=== PATIENT | male | born 1930 | race Hispanic/Latino ===

== ENCOUNTER 2016-08-27 19:28 | Inpatient (IN) | payer MEDICARE, OTHER ==
[~2016-08-27] VITALS: Ht 170.2 cm; Wt 68.8 kg
[~2016-08-27 19:28] MED LIST: ADVAIR DISK1 IN; ALLOPURINOL100 MG PO; AMLODIPINE10 MG OR; AMLODIPINE5 MG PO; AMOXICILLIN500 MG PO; ATROVENT I0.5 MG/VIA IN; AUGMENTIN875TAB PO; AVELOX400 MG OR; AVELOX400 MG PO; BACTRIM DS1 TAB PO; BIOTUSSIN PO; BUMETANIDE2 MG PO; CARDURA4 MG PO; CENTRUM PO; CEPHALEXIN500 MG OR; CLONIDINE0.1 MG OR; CLONIDINE0.1 MG PO; COUMADIN1 MG OR; COZAAR100 MG PO; DILAUDID 2MG2 MG/TA1 PO; DIOVAN160 MG OR; DIOVAN320 MG OR; DOXAZOSIN4 MG PO; DOXYCYCL HYC100 MG PO; DUONEB IN; ELIQUIS2.5 MG PO; FERROUS SULF325 M1 PO; FLEXERIL OR; FLEXERIL5 MG PO; GABAPENTIN300 MG PO; HYDRALAZINE50 MG PO; KEFLEX500 MG PO; LASIX 20 MG TAB20 MG PO; LASIX 40 MG40 MG/TAB PO; LORTAB 10 PO; LORTAB 7.5 PO; LOSARTAN POT50 MG PO; LOSARTAN POTASS50 MG PO; MEDDOSEPAK PO; METOPROL TAR100 MG; METOPROL TAR100 MG PO; METOPROL TAR25 M1 PO; METOPROL TAR25 MG PO; METOPROLOL100 MG OR; MULTI VIT PO; NEURONTIN300 MG OR; NEXIUM40 M1 OR; NORVASC10 M1 PO; OMEPRAZOLE20 MG PO; OXYCOD/APAP PO; PANCOF EXP OR; PERCOCET 5/325M1 TAB PO; PLAVIX75 MG OR; PRADAXA150 MG PO; PREDNISONE10 MG PO; PRILOSEC20 MG PO; PROAIR HFA IN; ROBITUSSIN10 ML PO; STERAPRED DS10 MG OR; TAMSULOSIN0.4 MG PO; TYLENOL325 MG PO; ULTRAM50 MG OR; XANAX0.25 MG PO; ZITHROMAX500 MG PO
[2016-08-27 20:12] LABS: HEMATOCRIT 31.6 % (39.0-50.0); HEMOGLOBIN 9.8 g/dl (14.0-18.0); IMMATURE GRANULOCYTES 0.7 % (0.0-1.0); MEAN CELL VOLUME 83.2 fL CALC (80.0-100.0); MEAN CORPUSCULAR HGB 25.8 pG CALC (26.0-32.0); NEUT# 4.46 thou/uL (1.82-7.42); RED BLOOD COUNT 3.8 mill/uL (4.70-6.10); RED CELL DISTRI WIDTH 17.1 % (11.5-15.5)
[2016-08-27] MEDS ORDERED: PRILOSEC20 MG PO (20:33)
[2016-08-27 20:38] LABS: ALBUMIN 4.2 g/dL (3.2-5.0); ALKALINE PHOSPHATASE 111 u/l (38-126); ANION GAP 16 (6-22 (CALC)); BILIRUBIN, TOTAL 0.9 mg/dL (0.0-1.4); BUN 32 mg/dL (8-23); BUN/CREATININE RATIO 21 (12-20 (CALC)); CALCIUM 8.8 mg/dL (8.4-10.2); CARBON DIOXIDE 26 mmol/l (22-30); CHLORIDE 100 mmol/l (95-108); CREATININE 1.5 mg/dL (0.7-1.3); GFR 44 ML/MIN (>=60 (CALC)); GFR FOR AFR.AMER. 54 ML/MIN (>=60 (CALC)); GLUCOSE 118 mg/dL (82-115); POTASSIUM 4.3 mmol/l (3.5-5.1); SGOT/AST 29 u/l (19-48); SGPT/ALT 23 u/l (11-66); SODIUM 137 mmol/l (137-146); TOTAL PROTEIN 7.5 g/dL (6.3-8.2)
[2016-08-27 20:49] LABS: MYOGLOBIN 109 ng/mL (0 - 121)
[2016-08-27 21:08] LABS: URINE BILIRUBIN - DIPSTICK NEGATIVE (NEGATIVE); URINE BLOOD DIPSTICK NEGATIVE (NEGATIVE); URINE CLARITY CLEAR; URINE COLOR YELLOW; URINE GLUCOSE - DIPSTICK NEGATIVE (NEGATIVE); URINE KETONE NEGATIVE (NEGATIVE); URINE LEUK ESTERASE NEGATIVE (NEGATIVE); URINE NITRITE - DIPSTICK NEGATIVE (Negative); URINE PH 5.5 (4.5-8.0); URINE PROTEIN - DIPSTICK NEGATIVE (NEG-TRACE); URINE UROBILINOGEN - DIPSTICK 0.2 E.U./dL (0.2)
[2016-08-27 23:15] VITALS: BP 190/72
[2016-08-27 23:30] VITALS: BP 173/73
[2016-08-27 23:45] VITALS: BP 173/73
[2016-08-28] VITALS (12 sets, daily range): BP systolic 142–165; BP diastolic 56–78
[2016-08-28 06:18] LABS: HEMATOCRIT 32.2 % (39.0-50.0); HEMOGLOBIN 10.1 g/dl (14.0-18.0); IMMATURE GRANULOCYTES 1.2 % (0.0-1.0); MEAN CELL VOLUME 82.8 fL CALC (80.0-100.0); MEAN CORPUSCULAR HGB CONC 31.4 g/L CALC (32.0-36.0); NEUT# 5.46 thou/uL (1.82-7.42); RED BLOOD COUNT 3.89 mill/uL (4.70-6.10); RED CELL DISTRI WIDTH 17.3 % (11.5-15.5)
[2016-08-28 06:32] LABS: ALBUMIN 4.3 g/dL (3.2-5.0); ALKALINE PHOSPHATASE 117 u/l (38-126); ANION GAP 16 (6-22 (CALC)); BILIRUBIN, TOTAL 1.2 mg/dL (0.0-1.4); BUN 29 mg/dL (8-23); BUN/CREATININE RATIO 23 (12-20 (CALC)); CALCIUM 9.1 mg/dL (8.4-10.2); CARBON DIOXIDE 27 mmol/l (22-30); CHLORIDE 100 mmol/l (95-108); CREATININE 1.3 mg/dL (0.7-1.3); GFR 52 ML/MIN (>=60 (CALC)); GFR FOR AFR.AMER. > 60 ML/MIN (>=60 (CALC)); GLUCOSE 91 mg/dL (82-115); MAGNESIUM 2.4 mg/dL (1.6-2.3); SGOT/AST 30 u/l (19-48); SGPT/ALT 27 u/l (11-66); SODIUM 139 mmol/l (137-146); TOTAL PROTEIN 7.7 g/dL (6.3-8.2)
[2016-08-29 00:25] VITALS: BP 138/56
[2016-08-29 05:00] VITALS: BP 168/66
[2016-08-29 06:26] VITALS: BP 147/58
[2016-08-29 08:25] VITALS: BP 166/81
[2016-08-29 11:28] LABS: HEMATOCRIT 30.1 % (39.0-50.0); HEMOGLOBIN 9.5 g/dl (14.0-18.0); MEAN CELL VOLUME 82.5 fL CALC (80.0-100.0); MEAN CORPUSCULAR HGB CONC 31.6 g/L CALC (32.0-36.0); NEUT# 4.62 thou/uL (1.82-7.42); RED BLOOD COUNT 3.65 mill/uL (4.70-6.10); RED CELL DISTRI WIDTH 17.1 % (11.5-15.5)
[2016-08-29 11:30] VITALS: BP 152/63
[2016-08-29] MEDS ORDERED: TRAMADOL HCL50 MG PO (11:39)
[2016-08-29 11:40] LABS: ANION GAP 16 (6-22 (CALC)); BUN 31 mg/dL (8-23); BUN/CREATININE RATIO 27 (12-20 (CALC)); CALCIUM 9.1 mg/dL (8.4-10.2); CARBON DIOXIDE 27 mmol/l (22-30); CHLORIDE 100 mmol/l (95-108); CREATININE 1.1 mg/dL (0.7-1.3); GFR > 60 ML/MIN (>=60 (CALC)); GFR FOR AFR.AMER. > 60 ML/MIN (>=60 (CALC)); GLUCOSE 101 mg/dL (82-115); SODIUM 138 mmol/l (137-146)
[2016-08-29] MEDS ORDERED: ZPAK PO (11:41)
== END 2016-08-29 13:13 | disposition home or self-care (01) | DRG 190 ==
LOC: ENPENDDIS → ED 19:28 → ED-I 22:03 → ICU 22:49 → ED 22:49 → ICU 23:30 → MS2 08-28 10:08
PROVIDERS: Emergency Medicine; ADMIT Internal Medicine; ATTEND Internal Medicine
DX: J44.1 Chronic obstructive pulmonary disease with (acute) exacerbation (principal); I50.33 Acute on chronic diastolic (congestive) heart failure; N17.9 Acute kidney failure, unspecified; I42.9 Cardiomyopathy, unspecified; I11.0 Hypertensive heart disease with heart failure; I48.0 Paroxysmal atrial fibrillation; E78.5 Hyperlipidemia, unspecified; M19.90 Unspecified osteoarthritis, unspecified site

== ENCOUNTER 2016-11-01 13:05 | Inpatient (IN) | payer MEDICARE, OTHER ==
[~2016-11-01] VITALS: Ht 167.6 cm; Wt 66.7 kg
[~2016-11-01 13:05] MED LIST changes: +TRAMADOL HCL50 MG PO; +ZPAK PO
[2016-11-01 16:04] LABS: HEMATOCRIT 31.7 % (39.0-50.0); HEMOGLOBIN 10.1 g/dl (14.0-18.0); IMMATURE GRANULOCYTES 1.3 % (0.0-1.0); MEAN CELL VOLUME 81.5 fL CALC (80.0-100.0); MEAN CORPUSCULAR HGB CONC 31.9 g/L CALC (32.0-36.0); NEUT# 4.63 thou/uL (1.82-7.42); RED BLOOD COUNT 3.89 mill/uL (4.70-6.10); RED CELL DISTRI WIDTH 18.6 % (11.5-15.5)
[2016-11-01 16:17] LABS: ALBUMIN 4.3 g/dL (3.2-5.0); ALKALINE PHOSPHATASE 115 u/l (38-126); ANION GAP 16 (6-22 (CALC)); BILIRUBIN, TOTAL 1.1 mg/dL (0.0-1.4); BUN 39 mg/dL (8-23); BUN/CREATININE RATIO 30 (12-20 (CALC)); CALCIUM 8.6 mg/dL (8.4-10.2); CARBON DIOXIDE 24 mmol/l (22-30); CHLORIDE 104 mmol/l (95-108); CREATININE 1.3 mg/dL (0.7-1.3); GFR 52 ML/MIN (>=60 (CALC)); GFR FOR AFR.AMER. > 60 ML/MIN (>=60 (CALC)); GLUCOSE 118 mg/dL (82-115); POTASSIUM 3.8 mmol/l (3.5-5.1); SGOT/AST 29 u/l (19-48); SGPT/ALT 34 u/l (11-66); SODIUM 140 mmol/l (137-146); TOTAL PROTEIN 7.3 g/dL (6.3-8.2)
[2016-11-01 16:29] LABS: MYOGLOBIN 114 ng/mL (0 - 121)
[2016-11-01] MEDS ORDERED: AMLODIPINE5 MG PO (16:55)
[2016-11-01] MEDS ORDERED: ALDACTONE25 MG PO (16:57)
[2016-11-01] MEDS ORDERED: STIOLTO RESPIMA1 AER IN (16:58)
[2016-11-01] MEDS ORDERED: ALBUTEROL SUL0.083 % IN (17:05)
[2016-11-01 17:34] LABS: URINE BILIRUBIN - DIPSTICK NEGATIVE (NEGATIVE); URINE BLOOD DIPSTICK TRACE-INTACT (NEGATIVE); URINE CLARITY CLEAR; URINE COLOR YELLOW; URINE GLUCOSE - DIPSTICK NEGATIVE (NEGATIVE); URINE KETONE NEGATIVE (NEGATIVE); URINE LEUK ESTERASE NEGATIVE (NEGATIVE); URINE NITRITE - DIPSTICK NEGATIVE (Negative); URINE PH 5.5 (4.5-8.0); URINE PROTEIN - DIPSTICK NEGATIVE (NEG-TRACE); URINE SPECIFIC GRAVITY 1.015; URINE UROBILINOGEN - DIPSTICK 0.2 E.U./dL (0.2)
[2016-11-01 19:45] VITALS: BP 160/91
[2016-11-01 19:50] VITALS: BP 166/66
[2016-11-01 20:05] VITALS: BP 145/61
[2016-11-01 22:00] VITALS: BP 152/78
[2016-11-02] VITALS (13 sets, daily range): BP systolic 151–181; BP diastolic 60–83
[2016-11-02 06:25] LABS: ANION GAP 14 (6-22 (CALC)); BUN 31 mg/dL (8-23); BUN/CREATININE RATIO 30 (12-20 (CALC)); CALCIUM 8.6 mg/dL (8.4-10.2); CARBON DIOXIDE 26 mmol/l (22-30); CHLORIDE 105 mmol/l (95-108); GFR > 60 ML/MIN (>=60 (CALC)); GFR FOR AFR.AMER. > 60 ML/MIN (>=60 (CALC)); GLUCOSE 79 mg/dL (82-115); MAGNESIUM 2.4 mg/dL (1.6-2.3); POTASSIUM 3.9 mmol/l (3.5-5.1); SODIUM 141 mmol/l (137-146)
[2016-11-03 01:06] VITALS: BP 170/73
[2016-11-03 03:00] VITALS: BP 159/69
[2016-11-03 05:00] VITALS: BP 151/84
[2016-11-03 06:00] VITALS: BP 144/60
[2016-11-03 09:12] VITALS: BP 144/60
== END 2016-11-03 10:40 | disposition home or self-care (01) | DRG 309 ==
LOC: ENPENDDIS → ED 13:05 → ED-I 17:00 → ED 17:58 → MS2 17:59 → ICU 17:59
PROVIDERS: Emergency Medicine; ADMIT Internal Medicine; ATTEND Internal Medicine
DX: I49.5 Sick sinus syndrome (principal); I50.32 Chronic diastolic (congestive) heart failure; I47.2 Ventricular tachycardia; C78.7 Secondary malignant neoplasm of liver and intrahepatic bile duct; I11.0 Hypertensive heart disease with heart failure; C17.0 Malignant neoplasm of duodenum; I27.2 Other secondary pulmonary hypertension; I08.0 Rheumatic disorders of both mitral and aortic valves; D64.9 Anemia, unspecified; I48.0 Paroxysmal atrial fibrillation; M19.011 Primary osteoarthritis, right shoulder; M75.101 Unspecified rotator cuff tear or rupture of right shoulder, not specified as traumatic; M54.2 Cervicalgia; R51 Headache; J44.9 Chronic obstructive pulmonary disease, unspecified; F10.21 Alcohol dependence, in remission; Z87.01 Personal history of pneumonia (recurrent)

== ENCOUNTER 2017-02-21 03:32 | Inpatient (IN) | payer MEDICARE, OTHER ==
[~2017-02-21] VITALS: Ht 167.6 cm; Wt 70.7 kg
[~2017-02-21 03:32] MED LIST changes: +ALBUTEROL SUL0.083 % IN; +ALDACTONE25 MG PO; +STIOLTO RESPIMA1 AER IN
--- NOTE | 2017-02-21 03:35 | NUR ---
PT STRAIGHT BACK TO ROOM 10 AND TRIAGED.
[2017-02-21] MEDS ORDERED: TAMSULOSIN HCL0.4 MG PO (03:57)
[2017-02-21] MEDS ORDERED: LOPRESSOR25 M1 PO (03:57)
[2017-02-21] MEDS ORDERED: LORTAB 1010 MG PO (03:58)
--- NOTE | 2017-02-21 04:04 | NUR ---
IV # 20 STARTED IN RFA. LABS AND BLOOD CX DRAWN. PT TOLERATED WELL. UPDATED ON PLAN OF CARE.
[2017-02-21 04:13] LABS: HEMATOCRIT 32.1 % (39.0-50.0); HEMOGLOBIN 10.2 g/dl (14.0-18.0); IMMATURE GRANULOCYTES 1.2 % (0.0-1.0); MEAN CORPUSCULAR HGB 25.4 pG CALC (26.0-32.0); MEAN CORPUSCULAR HGB CONC 31.8 g/L CALC (32.0-36.0); NEUT# 8.95 thou/uL (1.82-7.42); RED BLOOD COUNT 4.01 mill/uL (4.70-6.10); RED CELL DISTRI WIDTH 18.6 % (11.5-15.5)
[2017-02-21 04:26] LABS: ALBUMIN 4.1 g/dL (3.2-5.0); ALKALINE PHOSPHATASE 186 u/l (38-126); AMYLASE 38 u/l (30-110); ANION GAP 18 (6-22 (CALC)); BUN 34 mg/dL (8-23); BUN/CREATININE RATIO 31 (12-20 (CALC)); CARBON DIOXIDE 27 mmol/l (22-30); CHLORIDE 99 mmol/l (95-108); CREATININE 1.1 mg/dL (0.7-1.3); GFR > 60 ML/MIN (>=60 (CALC)); GFR FOR AFR.AMER. > 60 ML/MIN (>=60 (CALC)); GLUCOSE 132 mg/dL (82-115); LIPASE 25 u/l (23-300); POTASSIUM 4.3 mmol/l (3.5-5.1); SGOT/AST 42 u/l (19-48); SGPT/ALT 36 u/l (11-66); SODIUM 140 mmol/l (137-146); TOTAL PROTEIN 7.5 g/dL (6.3-8.2)
[2017-02-21 04:38] LABS: MYOGLOBIN 78 ng/mL (0 - 121)
--- NOTE | 2017-02-21 04:38 | NUR ---
PT MEDICATED FOR PAIN PER MD ORDER. IVF BOLUS INFUSING TO RFA W/O DIFFICULTY.
[2017-02-21 04:42] LABS: URINE BILIRUBIN - DIPSTICK NEGATIVE (NEGATIVE); URINE BLOOD DIPSTICK TRACE-INTACT (NEGATIVE); URINE CLARITY CLEAR; URINE COLOR YELLOW; URINE GLUCOSE - DIPSTICK NEGATIVE (NEGATIVE); URINE KETONE NEGATIVE (NEGATIVE); URINE LEUK ESTERASE NEGATIVE (NEGATIVE); URINE NITRITE - DIPSTICK NEGATIVE (Negative); URINE PH 6.5 (4.5-8.0); URINE PROTEIN - DIPSTICK 30 mg/dL (NEG-TRACE); URINE SPECIFIC GRAVITY <=1.005
[2017-02-21 04:51] LABS: URINE SQUAMOUS EPITHELIAL CELL FEW EPI/hpf (0-FEW)
--- NOTE | 2017-02-21 06:00 | NUR ---
PT RETURNED FROM CT. PLACED ON MANAGER ASSEMBLY. ROCEPHIN IV INFUSING TO RFA W/O DIFFICULTY. PT REPORTS A DECREASE IN PAIN TO ABD. REQUESTING WATER AT THIS TIME, INFORMED PT IN [place] THAT WE ARE AWAITING RESULTS OF CT SCAN TO DETERMINE IF ABLE TO HAVE ANY PO FLUIDS. VERBALIZED UNDERSTANDING. BP 163/76 HR 72 SPO2 97% ON 2LNC. DENIES ANY OTHER NEEDS AT THIS TIME. DAUGHTER B/S. CALL LIGHT WITHIN REACH.
--- NOTE | 2017-02-21 06:35 | NUR ---
IV ROCEPHIN COMPLETED. ZITHROMAX IV INFUSING TO RFA W/O DIFFICULTY. PT REPORTS PAIN HAS DECREASED SINCE MEDICATION ADMINISTRATION. RESTING COMFORTABLY ON STRETCHER. REPEAT TEMP OF 99.8. INFORMED PT OF PENDING ADMISSION. VERBALIZED UNDERSTANDING.
--- NOTE | 2017-02-21 06:49 | NUR ---
REPORT GIVEN TO COOPER SOLIS.
--- NOTE | 2017-02-21 07:18 | NUR ---
IV ABT INFUSING TO RT WRIST SITE HEALTHY. PT APPEARS JAUNDICED. ALERT AFEBRILE. BLANKET PROVIDED. PT APPEARS COMFORTABLE AT THIS TIME. VSS.
--- NOTE | 2017-02-21 07:38 | NUR ---
PT TO MEDSURG VIA STRETCHER ON TELE, O2 2L/M VIA NC. IV SITE HEALTHY. LOCKED. NO APPARENT DISTRESS. IV ABT COMPLETED. REPORT PROVIDED BY OFF GOING SHIFT.
--- NOTE | 2017-02-21 07:38 | NUR ---
PT ARRIVED TO THE FLOOR VIA STRETCHER WITH ER NURSE. PT ORIENTED TO ROOM AND CALL LIGHT SYSTEM. SAFETY PRECAUTIONS ARE IN PLACE. CALL LIGHT WITHIN REACH. WILL CONTINUE TO MONITOR HOURLY.
[2017-02-21 08:03] VITALS: BP 165/85
[2017-02-21 10:55] VITALS: BP 156/57
--- NOTE | 2017-02-21 10:55 | NUR ---
NOTIFIED BY ED STAFF OF [address] MERCHANT NOTIFIED AT THIS TIME. PT DENIES COMPLAINTS. NO SOB, OR PALPITATIONS. VS; TEMP-97.6, O2- 96 ON O2 2L, PULSE-71, BP- 156/57. WILL CONTINUE TO MONITOR. CALL LIGHT WITHIN REACH.
--- NOTE | 2017-02-21 11:45 | NUR ---
PT UP AT SIDE OF BED EATING LUNCH WITH FAMILY MEMBER AT BEDSIDE WHILE WATCHING TV. NO SIGNS OF DISTRESS FROM PT. IV SIGHT APPEARS HEALTHY. RESP EVEN AND UNLABORED. SAFETY PRECAUTIONS ARE IN PLACE. CALL LIGHT WITHIN REACH.
--- NOTE | 2017-02-21 14:18 | NUR ---
PHYSICAL THERAPY IN ROOM WITH PT.
[2017-02-21 16:11] VITALS: BP 128/61
[2017-02-21 19:02] VITALS: BP 146/65
--- NOTE | 2017-02-21 20:00 | NUR ---
PT RESTING IN SEMI FOWLERS POSITION WATCHING TV WITH FAMILY MEMBER AT BEDSIDE;ASSESSMENT COMPLETED;PT COMPLAINS OF RIGHT SIDED ABDOMINAL PAIN AND TENDERNESS ON PALPATION;ABDOMEN DISTENDED AND FIRM;PT REPORTS THAT PAIN LEVEL HAS DECREASED SINCE ADMISSION AND IS NOW AT A 5/10 ON THE PAIN SCALE;PT RE-EDUCATED ON PAIN MEDICATION SCHEDULE AND VERBALIZES UNDERSTANDING;#20G TO RIGHT FOREARM FLUSHED AND PATENT;RESP APPEAR SHALLOW BUT EVEN;SCABBED AREA NOTED TO LEFT LOWER LEG,POULTRY SERVICE TECHNICIAN;PT EDUCATED ON NPO DIET AFTER MIDNIGHT;BED ALARM PLACED ON PT FOR SAFETY;FALL PRECAUTIONS REINFORCED;PT VOICES NO CONERNS AT THIS TIME;URINAL AT BEDSIDE;CALL LIGHT IN REACH;WILL CONTINUE TO MONITOR
[2017-02-21 23:19] VITALS: BP 162/75
--- NOTE | 2017-02-21 23:40 | NUR ---
PT SLIGHTLY ANXIOUS AT THIS TIME;PT-REPOSITIONED BACK INTO BED;LONNIE,RN TRANSLATED FOR WRITTER AND EXPLAINED NPO DIET;PT DENIES ANY PAIN TO HIS ABDOMEN;RESP REMAIN SHALLOW,02 @ 2L AT BEDSIDE;PT REFUSES OXYGEN AT THIS TIME;IV SITE APPEARS HEALTHY;BLANKETS REMOVED,AC LOWERED FOR TEMP OF 99.8 WILL MONITOR FOR EFFECTIVENESS;ADDITIONAL PILLOW PROVIDED PER REQUEST;PT VOICES NO OTHER NEEDS AT THIS TIME;FALL PRECAUTIONS IN PLACE;WILL CONTINUE TO MONITOR
--- NOTE | 2017-02-22 01:15 | NUR ---
PT AMBULATING AROUND ROOM,FILLING UP WATER PITCHER WITH WATER;PT RE-EDUCATED ON NPO STATUS;WATER CUP AND PITCHER REMOVED COMPLETELY FROM ROOM;PT RE-POSITIONED IN BED;COOPER ONEILL TRANSLATED FOR WRITTER;WILL CONTINUNE TO MONITOR
--- NOTE | 2017-02-22 01:44 | NUR ---
BED ALARM SOUNDED OFF;PT FOUND FILLING UP BATHROOM BASIN WITH WATER;PT PLACED BACK INTO BED;BONNIE FLEMING INSTRUCTED PT TO GET SOME SLEEP AND TO REMAIN NPO;PT THEN PROCEEDED TO ASK WRITTER TO "RUB HIS BACK";BED ALARM PLACED BACK ON PT FOR SAFETY PRECAUTIONS;WILL CONTINUE TO MONITOR
--- NOTE | 2017-02-22 02:02 | NUR ---
NOTIFIED OF PT INCREASING AGITATION AND FAILURE TO COOPERATE WITH STAFF MEMBERS;AWAITING NEW ORDERS;WILL CONTINUE TO MONITOR CLOSELY
--- NOTE | 2017-02-22 02:15 | NUR ---
PT MEDICATED WITH ONE TIME DOSE OF ATIVAN 1MG IV
[2017-02-22 05:09] VITALS: BP 150/65
--- NOTE | 2017-02-22 05:10 | NUR ---
LAB AT BEDSIDE;PT VOIDED 100CC OF CLEAR/YELLOW URINE INTO URINAL AND ABOUT 50CC ON TO THE FLOOR;NEW GOWN PROVIDED;PT DENIES ANY PAIN AT THIS TIME;RESPIRATIONS SHALLOW,PRN 02 PLACED ON PT FOR COMFORT;TELE MONITOR IN PLACE;PT DENIES ANY NEEDS AT THIS TIME;FALL PRECAUTIONS IN PLACE;CALL LIGHT IN REACH;WILL CONTINUE TO MONITOR
--- NOTE | 2017-02-22 05:55 | NUR ---
MOUTH SWABS PROVIDED TO PT;PT RESTLESS AT THIS TIME;PT RE-POSITIONED IN BED;WILL CONTINUE TO MONITOR
[2017-02-22 05:57] LABS: HEMATOCRIT 28.4 % (39.0-50.0); HEMOGLOBIN 8.9 g/dl (14.0-18.0); IMMATURE GRANULOCYTES 0.7 % (0.0-1.0); MEAN CELL VOLUME 81.1 fL CALC (80.0-100.0); MEAN CORPUSCULAR HGB 25.4 pG CALC (26.0-32.0); MEAN CORPUSCULAR HGB CONC 31.3 g/L CALC (32.0-36.0); NEUT# 7.29 thou/uL (1.82-7.42); RED BLOOD COUNT 3.5 mill/uL (4.70-6.10); RED CELL DISTRI WIDTH 18.6 % (11.5-15.5)
[2017-02-22 06:24] LABS: ANION GAP 13 (6-22 (CALC)); BUN 30 mg/dL (8-23); BUN/CREATININE RATIO 31 (12-20 (CALC)); CALCIUM 7.9 mg/dL (8.4-10.2); CARBON DIOXIDE 28 mmol/l (22-30); CHLORIDE 98 mmol/l (95-108); GFR > 60 ML/MIN (>=60 (CALC)); GFR FOR AFR.AMER. > 60 ML/MIN (>=60 (CALC)); GLUCOSE 78 mg/dL (82-115); MAGNESIUM 1.9 mg/dL (1.6-2.3); POTASSIUM 4.1 mmol/l (3.5-5.1); SODIUM 135 mmol/l (137-146)
--- NOTE | 2017-02-22 07:00 | NUR ---
REPORT RECIEVED FROM COOPER BREWER. PT APPEARS TO BE ASLEEP ON ENTRY. AWAKENS SPONTANEOUSLY TO SPEECH. NO SIGNS OF DISTRESS. RESP EVEN AND UNLABORED. BED ALARM IN PLACE. SAFETY PRECAUTIONS IN PLACE. CALL LIGHT WITHIN REACH. HOURLY ROUNDS WILL CONTINUE TO BE MADE.
[2017-02-22 07:38] VITALS: BP 151/78
--- NOTE | 2017-02-22 09:15 | NUR ---
PT TRANSPORTED VIA TO US, WITH AUXILLARY. O2 IN PLACE.
--- NOTE | 2017-02-22 10:11 | NUR ---
PT RETURNED FROM HAVING US COMPLETED
[2017-02-22 12:00] VITALS: BP 148/59
--- NOTE | 2017-02-22 12:05 | NUR ---
HOSPICE CONSULT. SPOKE TO LIZZY FROM [facility]. FAXED OVER PT FACESHEET AND H&P.
--- NOTE | 2017-02-22 14:42 | NUR ---
PHYSICAL THERAPY IN ROOM WITH PT.
[2017-02-22 16:00] VITALS: BP 138/56
--- NOTE | 2017-02-22 16:39 | NUR ---
PATIENT REQUIRES MIN A FOR SIT TO STAND TO RW. GT 100FT X 2 WITH REST ON CHAIR AT END OF HALLWAY. O2 SATS NO LOWER THAN 92%. PATIENT WANTING TO CONTINUE WALKING IN ROOM. ENCOURAGED TO SIT IN RECLINER WITH FAMILY PRESENT. PATIENT HAS BEEN PLACED ON HOSPICE AND IS BEING D/C'D PER REQUEST FROM [facility].
--- NOTE | 2017-02-22 17:19 | NUR ---
RT IN ROOM WITH PT.
[2017-02-22 18:00] VITALS: BP 140/66
--- NOTE | 2017-02-22 18:37 | NUR ---
IV SIGHT HAD BECOME BAD. IV SIGHT HAS SOME NON PITTING EDEMA, WARM TO TOUCH. IV ANTIBIOTIC ON HOLD. UNTIL NEW SIGHT IS OBTAINED.
--- NOTE | 2017-02-22 19:30 | NUR ---
BEDSIDE REPORT RECEIVED FROM COOPER SOLIS. PT SITTING UP IN BED WITH FAMILY AT BEDSIDE. WOLOF SPEAKING. ALERT AND ORIENTED; HARD OF HEARING. DENIES PAIN CURRENTLY. RESPIRTIONS EVEN AND UNLABORED ON OXYGEN. NEW IV STARTED TO LW AND ABT INFUSION STARTED WITHOUT DIFFICULTY. PLAN OF CARE DISCUSSED WITH PT AND FAMILY. ENCOURAGED TO VERBALIZE CONCERNS. STATES UNDERSTANDING. SAFETY MEASURES IN PLACE. CALL LIGHT WITHIN REACH.
[2017-02-22 23:00] VITALS: BP 143/78
--- NOTE | 2017-02-23 | NUR ---
PT ASLEEP AT THIS TIME. ATIVAN EFFECITVE FOR ANXIOUSNESS. ABT INFUSING WITHOUT DIFFICUTLY; IV SITE APPEARS HEALTHY. PAIN MEDICATION EFFECTIVE FOR PAIN TO RIGHT SHOULDER. NO SIGNS OF DISTRESS NOTED. RESPIRATIONS EVEN AND UNLABORED ON OXYGEN.
--- NOTE | 2017-02-23 04:02 | NUR ---
DURING ROUNDS PT FOUND IN SITTING POSITION WITH BACK LEANING AGAINST BED. PT WAS INCONTINENT OF URINE AND HAD REMOVED MAT MAKING MACHINE TENDER. DISORIENTED AT TIME OF EVENT. PT DENIES PAIN AND DENIES HITTING HEAD. NO APPARENT INJURY. VS STABLE. WILL CONTINUE TO MONITOR. BED ALARM ON.
--- NOTE | 2017-02-23 04:27 | NUR ---
RESPIRATORY IN TO GIVE BREATHING TREATMENT. PT INITIALLY UNABLE TO EXPLAIN HOW HE CAME TO BE SITTING ON THE FLOOR. NOW PT EXPLAINS THAT HE WOKE UP, DECIDED TO STAND UNASSISTED FOR SOMETHING (UNKNOWN) AND THEN HE WAS SITTING ON THE FLOOR. UNABLE TO EXPLAIN ANY FURTHER AT THIS TIME. DR. TOMLINSON NOTIFIED VIA PHONE MESSAGE. PT ALSO STATES THAT HE REMAINS PAIN FREE AND DOES NOT HAVE ANY APAPRENT INJURIES. CALL LIGHT SYSTEM REVIEWED AND REEDUCATED ON SAFETY PRECAUTIONS.
[2017-02-23 05:12] VITALS: BP 160/84
--- NOTE | 2017-02-23 07:45 | NUR ---
PT RESTING WITH EYES CLOSED; AROUSED EASILY TO VERBAL STIMULI; PT ASSISTED WITH BREAKFAST SET UP; TELE MONITOR IN PLACE; CALL MOLINA WITHIN REACH; WILL CONTINUE TO MONITOR.
[2017-02-23 07:50] VITALS: BP 150/66
--- NOTE | 2017-02-23 09:15 | NUR ---
PT MEDICATED FOR C/O LEFT SHOULDER PAIN 11/01; RT ARM WITH MODERATE AMOUNT OF EDEMA NOTED, ELEVATED ON PILLOW; FAMILY IN ROOM; CALL MOLINA WITHIN REACH; WILL CONTINUE TO MONITOR.
[2017-02-23 11:20] VITALS: BP 129/50
--- NOTE | 2017-02-23 11:20 | NUR ---
PT ASSISTED WITH SHOWER BY CORE MANAGER;
[2017-02-23] MEDS ORDERED: METRONIDAZOLE500 MG PO (11:44)
[2017-02-23] MEDS ORDERED: CIPROFLOXACN500 MG PO (11:45)
--- NOTE | 2017-02-23 13:58 | NUR ---
Discharge instructions given. Patient verbalizes understanding of same. Discharged in stable condition via Medical Transport to Home with [facility]. All belongings sent with pt.
== END 2017-02-23 13:55 | disposition hospice, home (50) | DRG 444 ==
LOC: ED 03:32 → ED-I 06:15 → ED 06:35 → MS2 06:36
PROVIDERS: Emergency Medicine; Nurse Practitioner Family; ADMIT Internal Medicine; ATTEND Internal Medicine
DX: K81.0 Acute cholecystitis (principal); J18.9 Pneumonia, unspecified organism; I50.33 Acute on chronic diastolic (congestive) heart failure; I47.2 Ventricular tachycardia; C78.7 Secondary malignant neoplasm of liver and intrahepatic bile duct; R18.8 Other ascites; J44.0 Chronic obstructive pulmonary disease with (acute) lower respiratory infection; I13.0 Hypertensive heart and chronic kidney disease with heart failure and stage 1 through stage 4 chronic kidney disease, or unspecified chronic kidney disease; C17.0 Malignant neoplasm of duodenum; N39.0 Urinary tract infection, site not specified; D50.9 Iron deficiency anemia, unspecified; I08.0 Rheumatic disorders of both mitral and aortic valves; I73.9 Peripheral vascular disease, unspecified; F10.10 Alcohol abuse, uncomplicated; I48.0 Paroxysmal atrial fibrillation; E78.5 Hyperlipidemia, unspecified; I16.0 Hypertensive urgency; N18.9 Chronic kidney disease, unspecified; M75.101 Unspecified rotator cuff tear or rupture of right shoulder, not specified as traumatic; M54.16 Radiculopathy, lumbar region; G89.3 Neoplasm related pain (acute) (chronic); Z66 Do not resuscitate; Z51.5 Encounter for palliative care; M19.011 Primary osteoarthritis, right shoulder; M24.411 Recurrent dislocation, right shoulder; K74.69 Other cirrhosis of liver; Z87.440 Personal history of urinary (tract) infections; Z87.01 Personal history of pneumonia (recurrent)
CPT/HCPCS: J2060; Q9967